=== PATIENT | female | born 1970 | race Caucasian/White ===

== ENCOUNTER 2016-05-31 22:05 | Emergency (ER) | payer BC ==
[~2016-05-31] VITALS: Ht 167.6 cm; Wt 72.1 kg
[2016-05-31 22:47] LABS: HEMATOCRIT 39.2 % (36.0-46.0); MCH 29.6 PG (29.0-34.0); MCHC 33.2 G/DL (30.0-36.0); MCV 89.3 FL (83-99); MEAN PLAT.VOLUME 9.6 uM^3 (9.5-12.4); PLATELET COUNT 382 K/uL (156-360); RBC DIS.WIDTH-CV 12.6 % (11.8-14.6); RBC DIS.WIDTH-SD 41.6 % (39-53); RED BLOOD COUNT 4.39 M/uL (3.80-5.20); WHITE BLOOD COUNT 4.7 K/uL (4.1-10.2)
[2016-05-31 23:04] LABS: CHLORIDE 102 mEq/L (99-109); POTASSIUM 4.6 mEq/L (3.7-5.4); SODIUM 137 mEq/L (136-147)
[2016-05-31 23:05] LABS: GLUCOSE 85 mg/dL (70-99)
[2016-05-31 23:07] LABS: ANION GAP 9 MEQ/L (2-14)
[2016-05-31 23:09] LABS: GFR ESTIMATE (CALCULATED) > 59 mL/min/
[2016-05-31 23:10] LABS: UREA NITROGEN (BUN) 10 mg/dL (9-23)
[2016-06-01 00:28] LABS: TROP-I INTERPRETATION NEGATIVE; TROPONIN-I < 0.01 ng/mL (0.0-0.30)
[2016-06-01] MEDS ORDERED: TIZANIDINE HCL2 MG PO (01:18)
[2016-06-01] MEDS ORDERED: HYCODAN SYRUP480 ML PO (01:18)
[2016-06-01] MEDS ORDERED: PREDNISONE10 MG PO (01:18)
[2016-06-01 01:24] LABS: INFLUENZA A VIRAL ANTIGEN NEGATIVE; INFLUENZA B VIRAL ANTIGEN NEGATIVE
[2016-06-01 01:46] VITALS: BP 134/79
== END 2016-06-01 01:55 | disposition home or self-care (01) ==
LOC: EME 22:05
PROVIDERS: Emergency Medicine
DX: J20.9 Acute bronchitis, unspecified (principal); J06.9 Acute upper respiratory infection, unspecified
CPT/HCPCS: 71020; 80048; 84484; 85027; 87502; 93005; 94640; 99281; 99284